=== PATIENT | female | born 1960 | race Caucasian/White ===

== ENCOUNTER 2017-07-09 10:59 | Emergency (ER) | payer SELFPAY ==
[~2017-07-09] VITALS: Ht 165.1 cm; Wt 95.7 kg
[2017-07-09] MEDS ORDERED: EFFER-K 20 MEQ20 MEQ PO (11:09)
[2017-07-09] MEDS ORDERED: SODIUM BICARBO325 MG PO (11:10)
[2017-07-09] MEDS ORDERED: METOPROLOL SUCC50 MG PO (11:11)
[2017-07-09] MEDS ORDERED: TIROSINT25 MCG PO (11:11)
== END 2017-07-09 11:17 | disposition home or self-care (01) ==
LOC: ED 10:59
DX: Z00.8 Encounter for other general examination (principal)

== ENCOUNTER 2017-09-08 14:54 | Emergency (ER) | payer OTHER ==
[~2017-09-08] VITALS: Ht 165.1 cm; Wt 95.7 kg
[~2017-09-08 14:54] MED LIST: EFFER-K 20 MEQ20 MEQ PO; METOPROLOL SUCC50 MG PO; SODIUM BICARBO325 MG PO; TIROSINT25 MCG PO
[2017-09-08] MEDS ORDERED: [UNRECOGNIZED DRUG - OTHER] PO (15:18)
[2017-09-08] MEDS ORDERED: VITAMIN D35000 UNIT PO (15:19)
[2017-09-08] MEDS ORDERED: ST. JOSEPH ASPI81 M1 PO (15:20)
[2017-09-08] MEDS ORDERED: CYANOCOBAL1000 MCG/M IM (15:20)
[2017-09-08] MEDS ORDERED: OMEPRAZOLE20 MG PO (15:20)
[2017-09-08] MEDS ORDERED: MAGNESIUM400 MG PO (15:21)
[2017-09-08] MEDS ORDERED: KLOR-CON M2020 MEQ PO (15:21)
[2017-09-08] MEDS ORDERED: CIPRO250 MG PO (16:12)
== END 2017-09-08 16:16 | disposition home or self-care (01) ==
LOC: ED 14:54
DX: N39.0 Urinary tract infection, site not specified (principal); I48.91 Unspecified atrial fibrillation; Z88.8 Allergy status to other drugs, medicaments and biological substances; Z79.899 Other long term (current) drug therapy; Z79.82 Long term (current) use of aspirin
CPT/HCPCS: 80053; 81001; 85025; 99283

== ENCOUNTER 2018-04-29 10:23 | Emergency (ER) | payer OTHER ==
[~2018-04-29] VITALS: Ht 165.1 cm; Wt 95.7 kg
[~2018-04-29 10:23] MED LIST changes: +CIPRO250 MG PO; +CYANOCOBAL1000 MCG/M IM; +KLOR-CON M2020 MEQ PO; +MAGNESIUM400 MG PO; +OMEPRAZOLE20 MG PO; +ST. JOSEPH ASPI81 M1 PO; +VITAMIN D35000 UNIT PO; +[UNRECOGNIZED DRUG - OTHER] PO
[2018-04-29] MEDS ORDERED: ACETAMINOPHEN-1 EAC1 PO (12:00)
== END 2018-04-29 12:20 | disposition home or self-care (01) ==
LOC: ED 10:23
DX: S52.124A Nondisplaced fracture of head of right radius, initial encounter for closed fracture (principal); W22.8XXA Striking against or struck by other objects, initial encounter; I48.91 Unspecified atrial fibrillation; Z88.8 Allergy status to other drugs, medicaments and biological substances; Z79.899 Other long term (current) drug therapy; Z79.82 Long term (current) use of aspirin
CPT/HCPCS: 73080; 99283